=== PATIENT | female | born 1995 | race African-American/Black ===

== ENCOUNTER 2017-04-29 12:36 | Emergency (ER) | payer MEDICAID ==
[~2017-04-29] VITALS: Ht 157.5 cm; Wt 69.0 kg
[2017-04-29 12:38] VITALS: BP 144/91; PULSE 99; RESP 18; TEMP 98.9; O2SAT 100
[2017-04-29] MEDS ORDERED: CIPR0.3S2 LEFT EYE (13:38)
--- NOTE | 2017-04-29 13:38 | PD ---
HPI Chief Complaint: Eye Problems/Injury Time Seen by Provider: 13:18 Travel History International Travel<30 days: No Contact w/Intl Traveler<30days: No Traveled to known affect area: No History of Present Illness HPI 21-year-old female presents emergency department for evaluation of bilateral eye redness and mild irritation times one week. Patient reports similar symptoms with conjunctivitis in the past. Patient reports she does wear contact lenses very infrequently has not used them for the last 2 weeks. She denies eye pain or visual changes. Symptom severity is mild. No aggravating or alleviating factors. PFSH Past Medical History Medical History: Denies Significant Hx Diminished Hearing: No ?: Not LMP: Social History Alcohol Use: No Tobacco Use: No Allergies-Medications (Allergen,Severity, Reaction): Coded Allergies: No Known Allergies (Unverified , 04/29/17) Reported Meds & Prescriptions Reported Meds & Active Scripts Active No Active Prescriptions or Reported Medications Review of Systems Except as stated in HPI: all other systems reviewed are Neg Physical Exam Narrative GENERAL: Well-nourished, well-developed patient. SKIN: Focused skin assessment warm/dry. HEAD: Normocephalic. EYES: No scleral icterus. Mild injection bilaterally. No drainage. Pupils are equal round and reactive. Corneas clear. EOMs intact. Visual acuity 20/ 20 bilaterally. NECK: Supple, trachea midline. No JVD or lymphadenopathy. Data Data Last Documented VS Vital Signs Date Time Temp Pulse Resp B/P (MAP) Pulse Ox O2 Delivery O2 Flow Rate FiO2 04/29/17 12:38 98.9 99 18 144/91 (108) 100 MDM Medical Decision Making Medical Screen Exam Complete: Yes Emergency Medical Condition: Yes Differential Diagnosis Bacterial conjunctivitis, allergic conjunctivitis, viral conjunctivitis Narrative Course 21-year-old female with chief complaint of bilateral eye erythema and crusting of the lashes. On exam patient has mild erythema of both eyes. Corneas are clear. EOMs intact. Visual acuity is normal. Patient does report she wears contact lenses but has not worn them in for 2 weeks. Symptom onset was one week ago. I do not suspect corneal ulcers. The symptoms are very mild. Patient will be treated for conjunctivitis and covered for pseudomonas coverage with ciprofloxacin. She is instructed to follow-up with her environmental compliance specialist Diagnosis Primary Impression: Conjunctivitis Qualified Codes: H10.33 - Unspecified acute conjunctivitis, bilateral Referrals: [employer]gology Teacher Additional Instructions: Using antibiotic eyedrops as prescribed. Make an appointment for follow-up with the environmental compliance specialist. Return to emergency department if he developed new or worsening symptoms Scripts Ciprofloxacin Opth Drops (Ciprofloxacin Opth Drops) 0.3% Soln 2 DROP LEFT EYE Q4H for Infection for 7 Days, #1 BOTTLE 0 Refills while awake x 5 days. Prov: Sigrid Rousseau 04/29/17 Disposition: 01 DISCHARGE HOME Condition: Stable Sigrid Rousseau Apr 29, 2017 13:38
== END 2017-04-29 14:14 | disposition home or self-care (01) ==
LOC: PHED 12:36 → PHEFT 14:14
DX: H10.33 Unspecified acute conjunctivitis, bilateral (principal)
CPT/HCPCS: 99283